=== PATIENT | female | born 1970 | race Caucasian/White ===

== ENCOUNTER 2018-08-20 18:24 | Emergency (ER) | payer SELFPAY ==
[~2018-08-20] VITALS: Ht 162.6 cm; Wt 77.1 kg
--- NOTE | 2018-08-20 18:31 | NUR ---
PT AMB TO ER BED 11
--- NOTE | 2018-08-20 18:32 | NUR ---
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 NO LOC. VOMITED X3, NO BLOOD. +SOB, LUNGS CLEAR BILATERALLY. C/O LEFT ARM "FEELS HEAVY." DENIES CP. A&OX4, CLEAR SPEECH, STEADY GAIT. VSS AT THIS TIME. AA0X4. GSC 15. BED IS DOWN, LOCKED, BED RAIL X 1, ERMD TO SEE PT. HX: A-FIB RX: COUMADIN.
[2018-08-20 18:36] VITALS: BP 131/66
--- NOTE | 2018-08-20 18:43 | NUR ---
DR. HALL AT BEDSIDE TO EVALUATE PT.
--- NOTE | 2018-08-20 18:48 | NUR ---
CALLED INSTRUMENT ENGINEER JAMAL FOR CODE BRAIN PER DR. HALL
--- NOTE | 2018-08-20 18:53 | NUR ---
PATIENT TAKEN FOR CT SCAN (CODE BRAIN) VIA GURNEY ON S[employer]IOR [employer] DEVELOPER BY FÉLIX RN, VERA EMT.
--- NOTE | 2018-08-20 19:00 | NUR ---
PT BACK FROM CT WITH INGACIA HEARD
--- NOTE | 2018-08-20 19:01 | NUR ---
LAB AT BEDSIDE
--- NOTE | 2018-08-20 19:09 | NUR ---
REPORT GIVEN TO AVRIL BETH
--- NOTE | 2018-08-20 19:09 | NUR ---
RECEIVED REPORT FROM IGNACIA HEARD.
[2018-08-20 19:12] LABS: BASOPHILS % (AUTO) 0.7 % (0.0-2.0); EOSINOPHILS # (AUTO) 0.1 K/uL (0-0.4); EOSINOPHILS % (AUTO) 2.2 % (0.0-4.0); HEMATOCRIT 32.7 % (36-48); HEMOGLOBIN 10.7 g/dL (12.0-16.0); LYMPHOCYTES # (AUTO) 1.5 K/uL (2.5-16.5); LYMPHOCYTES % (AUTO) 24.6 % (20.5-51.1); MEAN CORPUSCULAR HEMOGLOBIN 25 pg (27-31); MEAN CORPUSCULAR HGB CONC 33 g/dL (33-37); MEAN CORPUSCULAR VOLUME 77.5 fL (80-94); MONOCYTES # (AUTO) 0.5 K/uL (0.8-1.0); MONOCYTES % (AUTO) 8.6 % (1.7-9.3); NEUTROPHILS % (AUTO) 63.9 % (42.2-75.2); PLATELET COUNT (AUTO) 296 K/uL (140-450); RED BLOOD CELL COUNT(AUTO) 4.22 MIL/uL (4.20-5.40); RED CELL DISTRIBUTION WIDTH 16.3 % (11.6-13.7); WHITE BLOOD COUNT (AUTO) 6.3 K/uL (4.8-10.8)
--- NOTE | 2018-08-20 19:17 | NUR ---
CT Impression DICTATION: "No acute intracranial abnormality is seen. No intracranial bleed is identified."
[2018-08-20 19:20] LABS: ANION GAP 9.2 (8-16); CARBON DIOXIDE 28.6 mmol/L (21-32); CREATININE 0.7 mg/dL (0.6-1.3); POTASSIUM 3.8 mmol/L (3.5-5.1)
[2018-08-20 19:24] LABS: PROTHROMBIN TIME 9.5 secs (10.8-13.4)
[2018-08-20 19:26] LABS: ALBUMIN 3.5 g/dL (3.4-5.0); TOTAL BILIRUBIN 0.2 mg/dL (0.0-1.0)
[2018-08-20] MEDS ORDERED: MECLIZINE 25 MG TAB PO ONE (19:35)
[2018-08-20] MEDS ORDERED: ONDANSETRON 4 MG/2 ML VIAL IVP ONE (19:35)
[2018-08-20] MEDS ORDERED: KETOROLAC 30 MG/ML VIAL IVP ONE (19:35)
--- NOTE | 2018-08-20 19:57 | NUR ---
PT TAKEN TO XRAY VIA WC.
--- NOTE | 2018-08-20 20:01 | NUR ---
PT RETURNED FROM XRAY.
--- NOTE | 2018-08-20 20:01 | NUR ---
Geoff paniagua in ED - 08/20/18 at 2002 by LOLY PT RETURN FROM XRAY
[2018-08-20 21:10] VITALS: BP 131/66
--- NOTE | 2018-08-20 21:10 | NUR ---
Patient discharged with v/s stable. Written and verbal after care instructions given and explained. Patient alert, oriented and verbalized understanding of instructions. Ambulatory with steady gait. All questions addressed prior to discharge. ID band removed. Patient advised to follow up with PMD. Rx of MECLIZINE WAS given. Patient educated on indication of medication including possible reaction and side effects. Opportunity to ask questions provided and answered.
== END 2018-08-20 21:10 | disposition home or self-care (01) ==
LOC: MED 18:24
DX: S09.90XA Unspecified injury of head, initial encounter (principal); R42 Dizziness and giddiness; W19.XXXA Unspecified fall, initial encounter; Y93.89 Activity, other specified; Y92.89 Other specified places as the place of occurrence of the external cause; Y99.8 Other external cause status
CPT/HCPCS: 36415; 70450; 72050; 80053; 84484; 85025; 85610; 85730; 93005; 96374; 96375; 99284; J1885; J2405; J8597